=== PATIENT | female | born 1950 | race Caucasian/White ===

== ENCOUNTER 2017-05-24 11:58 | Outpatient (CLI) ==
[2014-05-15 20:44] VITALS: BMI 33.0
[2017-05-24 12:39] LABS: CREATININE 0.77 mg/dL (0.60-1.30)
--- NOTE | 2017-05-24 15:04 | MRI ---
EXAM: Brain MRI with and without contrast. HISTORY: Dizziness and headaches. COMPARISON: Brain MRI 04/19/[address] 05/20/2009. TECHNIQUE: Multiplanar, multisequence MR images were acquired of the brain before and after adminis tration of intravenous contrast. FINDINGS: The midline structures are central and the craniocervical junction is unremarkable. Ther e is enlargement of the subarachnoid space anterior to both frontal lobes, greater on the right and there is mild widening of some frontal and parietal sulci bilaterally. There is mild prominence of both sylvian fissures, the ventricles and the quadrigeminal cistern. These findings are compatible w ith age related involutional changes. The brain parenchyma has no diffusion restriction to suggest acute hypoperfusion or infarction. Sma ll T2 hyperintensities are present in the supratentorial white matter and fatoumata compatible with mild supratentorial and minor pontine leukomalacia. These findings are unchanged compared to 04/19/2016 allowing for minor differences in slice selection. There is no abnormal dark gradient echo signal t o suggest hemosiderin staining. After administration of gadolinium, no enhancing masses are identif ied. The corpus callosum is normal in configuration. The sella is mildly expanded and the pituitar y gland is small with a concave superior border without change. There are no intraorbital masses. Paranasal sinuses, middle ears and mastoids are clear. There is no abnormal contrast enhancement in the internal auditory canals or labyrinthine structures. Flow voids are present in the major intracranial arteries and dural venous sinuses. IMPRESSION: 1. 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 2. No intracranial mass, hemorrhage or acute cerebral infarct.
== END 2017-05-24 11:59 | disposition home or self-care (01) ==
LOC: RAD 11:58
PROVIDERS: ATTEND Internal Medicine
DX: R42 Dizziness and giddiness (principal); R51 Headache
CPT/HCPCS: 36415; 82565

== ENCOUNTER 2017-06-11 14:59 | Outpatient (CLI) ==
[2014-05-15 20:44] VITALS: BMI 33.0
== END 2017-06-11 15:00 | disposition home or self-care (01) ==
LOC: CAR 14:59
PROVIDERS: ATTEND Internal Medicine
DX: G47.10 Hypersomnia, unspecified (principal); R06.83 Snoring; G47.30 Sleep apnea, unspecified; H93.13 Tinnitus, bilateral; R42 Dizziness and giddiness; R51 Headache
CPT/HCPCS: 95810

== ENCOUNTER 2018-03-20 11:29 | Outpatient (CLI) ==
[2014-05-15 20:44] VITALS: BMI 33.0
== END 2018-03-20 11:30 | disposition home or self-care (01) ==
LOC: LAB 11:29
PROVIDERS: ATTEND Psychiatry & Neurology Neurology
DX: G62.9 Polyneuropathy, unspecified (principal)
CPT/HCPCS: 36415; 80048; 80076; 82607; 82746; 84165; 85027; 86038

== ENCOUNTER 2018-08-05 14:44 | Emergency (ER) ==
[2018-08-05 14:50] VITALS: BP 152/81; TEMP 98.4; BMI 33.3
--- NOTE | 2018-08-05 16:42 | ED.PDOC ---
General ED Provider: Dr. LEONID CASTILLO Chief Complaint: Foreign Body in Ear Stated Complaint: States Part of her hearing aid, a little plastic tip came loose and is stuck in her Left External Ear Canal. She states she attempted to remove it but was not successful. States she was told by the person who sold it to her that it would just fall out. States she can hear a popping noise in her left ear and it was hurting but now "lesley aches." Time Seen by Physician: 15:10 Mode of Arrival: Walk-In Information Source: Patient Exam Limitations: No limitations Primary Care Provider: PAUL KAUFMAN Nursing and Triage Documentation Reviewed and Agree: Yes Does patient meet sepsis criteria?: No System Inflammatory Response Syndrome: Not Applicable Sepsis Protocol: For patient's 13 years and over: Temp is 96.8 and below OR 101 and greater Pulse >90 BPM Resp >20/minute Acutely Altered Mental Status Are patient's symptoms suggestive of a new infection, such as: -Pneumonia -Skin, Soft Tissue -Endocarditis -UTI -Bone, Joint Infection -Implantable Device -Acute Abdominal Infection -Wound Infection -Meningitis -Blood Stream Catheter Infection -Unknown EENT Complaint Exam - Ear Complaint/Exam Onset/Duration: 12 hrd Symptoms Are: Still present (12) Timing: Constant Initial Severity: Moderate Current Severity: Moderate Character: Reports: Dull pain, Aching pain Aggravating: Reports: Foreign body Alleviating: Reports: None Associated Signs and Symptoms: Denies: Ear trauma, Ear swelling, Discharge, Fever, Hearing loss, Bleeding, Sore throat, Headache, URI symptoms, Foreign body sensation, Rash, Pain to external ear, Pain to external face Ear Surgical History: None Vesicles to External Pinna: No Vesicles to Tragus: No TMJ Tenderness: None Mastoid Tenderness: None Tragal Tenderness: None External Canal: Tenderness Material in Canal: Present: Cerumen Tympanic Membrane: Dullness Differential Diagnoses: Foreign Body Review of Systems - Review Of Systems Constitutional: Reports: No symptoms Eyes: Reports: No symptoms Ears, Nose, Mouth, Throat: Reports: No symptoms Respiratory: Reports: No symptoms Cardiac: Reports: No symptoms GI: Reports: No symptoms : Reports: No symptoms Musculoskeletal: Reports: No symptoms Skin: Reports: No symptoms Neurological: Reports: No symptoms Endocrine: Reports: No symptoms Hematologic/Lymphatic: Reports: No symptoms All Other Systems: Reviewed and Negative Past Medical History - Past Medical History Previously Healthy: Yes Endocrine: Reports: Dyslipidemia Cardiovascular: Reports: Hypertension Respiratory: Reports: COPD Hematological: Reports: None Gastrointestinal: Reports: GERD Genitourinary: Reports: None Neuro/Psych: Reports: None Musculoskeletal: Reports: None, Back Pain Cancer: Reports: None Last Menstrual Period: n/a - Surgical History General Surgical History: Reports: None - Family History Family History: Reports: None - Social History Smoking Status: Never smoker Hx Substance Use: No Alcohol Screening: None Physical Exam - Physical Exam Appearance: Well-appearing, No pain distress, Well-nourished Eyes: SANJAY, EOMI, Conjunctiva clear ENT: Ears normal, Nose normal, Oropharynx normal Neck: Supple Respiratory: Airway patent, Breath sounds clear, Breath sounds equal, Respirations nonlabored Cardiovascular: RRR, Pulses normal, No rub, No murmur GI/: Soft, Nontender, No masses, Bowel sounds normal, No Organomegaly Musculoskeletal: Normal strength, ROM intact, No edema, No calf tenderness Skin: Warm, Dry, Normal color Neurological: Sensation intact, Motor intact, Reflexes intact, Cranial nerves intact, Alert, Oriented Psychiatric: Affect appropriate, Mood appropriate Procedures - Foreign Body Removal Location of Foreign Object: Lt External Auditory Canal Foreign Object: small plastic tip Depth of Object: Middle aspect Type of Anesthesia: None Irrigation: No Skin Incised: No Instruments Used: Yes: Forceps Foreign Body Identified and Removed: Yes Critical Care Note - Critical Care Note Total Time (mins): 0 Course - Course Vital Signs: Temp Pulse Resp BP Pulse Ox 08/05/18 14:47 98.4 F 66 20 152/81 H 96 Departure - Departure Time of Disposition: 16:40 Disposition: HOME SELF-CARE Discharge Problem: Foreign body sensation in left ear canal Instructions: Ear Foreign Body (ED) Condition: Good Pt referred to PMD for follow-up: Yes IPMP verified?: No Additional Instructions: Have hearing aide checked for correction as needed Allergies/Adverse Reactions: Allergies Penicillins Adverse Reaction (Verified 05/15/14 21:00) Sulfa (Sulfonamide Antibiotics) Adverse Reaction (Verified 08/05/18 14:50) Home Medications: Ambulatory Orders Cetirizine HCl [Zyrtec] 10 mg PO DAILY 06/25/13 Simvastatin [Zocor] 40 mg PO DAILY 06/25/13 Gabapentin 100 mg PO BID 05/15/14 Albuterol Sulfate [Proair Hfa] 2 puff IH Q6H 08/05/18 Amlodipine Besylate 5 mg PO BID 08/05/18 Epinephrine [Epipen] 0.3 mg IJ PRN PRN 08/05/18 Escitalopram Oxalate 20 mg PO DAILY 08/05/18 Esomeprazole Magnesium [Nexium] 20 mg PO DAILY 08/05/18 Fluticasone Propionate [Flonase] 2 spray NS DAILY 08/05/18 Losartan Potassium 100 mg PO DAILY 08/05/18 Disposition Discussed With: Patient
== END 2018-08-05 17:03 | disposition home or self-care (01) ==
LOC: ED 14:44
DX: T16.2XXA Foreign body in left ear, initial encounter (principal)
CPT/HCPCS: 99282

== ENCOUNTER 2020-12-30 15:56 | Observation (INO) ==
[2020-12-30] MEDS ORDERED: ZOFRAN 4 MG/2 ML IVP STA (16:16)
[2020-12-30] MEDS ORDERED: SODIUM CHLORIDE 1,000 ML IV STA (16:17)
[2020-12-30] MEDS ORDERED: TYLENOL PO STA (16:27)
[2020-12-30 16:38] LABS: BASOPHILS % (AUTO) 0.5 % (0.0-3.0); EOSINOPHILS % (AUTO) 0.4 % (0.0-7.0); HEMATOCRIT 39.7 % (37.0-47.0); HEMOGLOBIN 13.4 g/dl (12.0-16.0); IMMATURE GRANULOCYTE % (AUTO) 0.3 % (0.0-5.0); LYMPHOCYTES # (AUTO) 0.7 K/uL (0.60-3.4); LYMPHOCYTES % (AUTO) 9.1 (10.0-50.0); MEAN CORPUSCULAR HEMOGLOBIN 30.2 pg (27.0-31.0); MEAN CORPUSCULAR HGB CONC 33.8 (31.8-35.4); MEAN CORPUSCULAR VOLUME 89.6 fl (81.0-99.0); MONOCYTES # (AUTO) 0.5 K/uL (0.4-2.0); MONOCYTES % (AUTO) 5.8 (0-10); NEUTROPHILS # (AUTO) 6.7 K/ul (2.0-6.9); NEUTROPHILS % (AUTO) 83.9 % (42.2-75.2); PLATELET COUNT 192 10^3/uL (140-440); RDW COEFFICIENT OF VARIATION 13.3 % (11.6-14.8); RED BLOOD COUNT 4.43 10^6/ul (4.20-5.40); WHITE BLOOD COUNT 7.95 K/ul (4.6-10.2)
[2020-12-30 16:49] LABS: ALANINE AMINOTRANSFERASE 20.1 U/L (0-35); ALKALINE PHOSPHATASE 67.8 U/L (53-141); ASPARTATE AMINO TRANSFERASE 31.2 U/L (14-36); BLOOD UREA NITROGEN 15.7 mg/dL (7-17); CALCIUM 9.49 mg/dL (8.4-10.2); CARBON DIOXIDE 28.3 mmol/L (22-30.0); CHLORIDE 101.7 mmol/L (98-107); CREATINE KINASE 31.6 U/L (30-135); CREATININE 0.73 mg/dL (0.60-1.30); GLUCOSE 111.5 mg/dL (74-106); POTASSIUM 3.99 mmol/L (3.5-5.1); SODIUM 137.6 mmol/L (134.5-145); TOTAL PROTEIN 7.74 g/dL (6.3-8.2)
--- NOTE | 2020-12-30 16:55 | DI ---
EXAM: Chest one view HISTORY: Cough and congestion COMPARISON: 10/06/2020 TECHNIQUE: Single view of the chest was performed FINDINGS: Probable left basilar atelectasis versus less likely consolidation. There is no pleural e ffusion or pneumothorax. The heart is normal in size. The mediastinal contour is normal. There are no acute abnormalities of the bones. IMPRESSION: Probable left basilar atelectasis versus less likely pneumonia
[2020-12-30 17:01] LABS: TROPONIN I < 0.012 ng/ml (0.0000-0.120)
[2020-12-30 17:45] LABS: BILIRUBIN,URINE Negative (NEGATIVE); CLARITY,URINE Clear (CLEAR); COLOR,URINE Dark (YELLOW); GLUCOSE, URINE (UA) Negative (NEGATIVE); KETONES,URINE Negative (NEGATIVE); LEUKOCYTE ESTERASE ,URINE Negative (NEGATIVE); NITRITE,URINE Negative (NEGATIVE); PROTEIN,URINE 1+ (NEGATIVE); URINE, BLOOD Negative (NEGATIVE); UROBILINOGEN,URINE 0.2 (0.2)
[2020-12-30 17:49] LABS: MUCUS,URINE 2+ (NOT PRESENT)
[2020-12-30] MEDS ORDERED: TYLENOL PO PRN (19:01)
[2020-12-30] MEDS ORDERED: ROCEPHIN 1 GM/50 ML D5W 1 GM/50 ML BAG IV SCH (19:30)
[2020-12-30] MEDS ORDERED: ZITHROMAX PO SCH (19:30)
[2020-12-30 21:34] VITALS: BMI 31.2
[2020-12-30] MEDS: SOLU-MEDROL 125 MG IVP SCH ×2 (21:56→21:57)
[2020-12-30] MEDS: LOVENOX SUBCUT SCH (22:07)
[2020-12-30] MEDS: NORVASC PO SCH (22:43)
[2020-12-30] MEDS: COLESTID PO SCH (22:43)
[2020-12-31 05:19] LABS: BASOPHILS % (AUTO) 0.2 % (0.0-3.0); HEMATOCRIT 37.4 % (37.0-47.0); HEMOGLOBIN 12.5 g/dl (12.0-16.0); IMMATURE GRANULOCYTE % (AUTO) 0.2 % (0.0-5.0); LYMPHOCYTES # (AUTO) 0.5 K/uL (0.60-3.4); MEAN CORPUSCULAR HEMOGLOBIN 29.8 pg (27.0-31.0); MEAN CORPUSCULAR HGB CONC 33.4 (31.8-35.4); MEAN CORPUSCULAR VOLUME 89.3 fl (81.0-99.0); MONOCYTES # (AUTO) 0.1 K/uL (0.4-2.0); MONOCYTES % (AUTO) 1.1 (0-10); NEUTROPHILS % (AUTO) 89.5 % (42.2-75.2); PLATELET COUNT 174 10^3/uL (140-440); RDW COEFFICIENT OF VARIATION 13.2 % (11.6-14.8); RED BLOOD COUNT 4.19 10^6/ul (4.20-5.40); WHITE BLOOD COUNT 5.57 K/ul (4.6-10.2)
[2020-12-31 05:33] LABS: ALANINE AMINOTRANSFERASE 20.4 U/L (0-35); ALBUMIN 3.91 g/dL (3.5-5.0); ALKALINE PHOSPHATASE 66.1 U/L (53-141); BILIRUBIN,TOTAL 0.43 mg/dL (0.2-1.3); BLOOD UREA NITROGEN 16.5 mg/dL (7-17); CALCIUM 9.07 mg/dL (8.4-10.2); CARBON DIOXIDE 23.9 mmol/L (22-30.0); CHLORIDE 103.9 mmol/L (98-107); CREATININE 0.69 mg/dL (0.60-1.30); GLUCOSE 172.1 mg/dL (74-106); POTASSIUM 3.72 mmol/L (3.5-5.1); SODIUM 135.6 mmol/L (134.5-145); TOTAL PROTEIN 7.01 g/dL (6.3-8.2)
[2020-12-31] MEDS: SOLU-MEDROL 125 MG IVP SCH ×3 (05:36→21:21)
[2020-12-31] MEDS: VITAMIN D PO SCH (08:28)
[2020-12-31] MEDS: FLONASE NAS SCH (08:28)
[2020-12-31] MEDS: CLARITIN PO SCH (08:30)
[2020-12-31] MEDS: COLESTID PO SCH ×2 (08:31→21:16)
[2020-12-31] MEDS: LEXAPRO PO SCH (08:31)
[2020-12-31] MEDS: COZAAR PO SCH (08:31)
[2020-12-31] MEDS: NORVASC PO SCH ×2 (08:32→21:16)
[2020-12-31] MEDS: LOVENOX SUBCUT SCH (08:35)
[2020-12-31] MEDS ORDERED: CETIRIZINE 10 MG PO SCH (09:00)
[2020-12-31] MEDS ORDERED: ASPIRIN CHEWABLE PO SCH (09:00)
[2020-12-31] MEDS ORDERED: PROTONIX PO SCH (09:00)
[2020-12-31] MEDS: ZOCOR PO SCH (16:57)
[2020-12-31] MEDS: HUMULIN R SUBCUT PRN ×2 (16:57→21:28)
[2020-12-31] MEDS ORDERED: ROCEPHIN 1 GM/50 ML D5W 1 GM/50 ML BAG IV SCH (21:00)
[2020-12-31] MEDS: ZITHROMAX PO SCH (21:16)
[2021-01-01 05:19] LABS: BASOPHILS % (AUTO) 0.1 % (0.0-3.0); HEMATOCRIT 34.4 % (37.0-47.0); HEMOGLOBIN 11.8 g/dl (12.0-16.0); IMMATURE GRANULOCYTE % (AUTO) 0.3 % (0.0-5.0); LYMPHOCYTES # (AUTO) 0.8 K/uL (0.60-3.4); LYMPHOCYTES % (AUTO) 8.5 (10.0-50.0); MEAN CORPUSCULAR HEMOGLOBIN 30.6 pg (27.0-31.0); MEAN CORPUSCULAR HGB CONC 34.3 (31.8-35.4); MEAN CORPUSCULAR VOLUME 89.1 fl (81.0-99.0); MONOCYTES # (AUTO) 0.2 K/uL (0.4-2.0); MONOCYTES % (AUTO) 2.1 (0-10); NEUTROPHILS # (AUTO) 8.5 K/ul (2.0-6.9); PLATELET COUNT 178 10^3/uL (140-440); RDW COEFFICIENT OF VARIATION 13.2 % (11.6-14.8); RED BLOOD COUNT 3.86 10^6/ul (4.20-5.40); WHITE BLOOD COUNT 9.52 K/ul (4.6-10.2)
[2021-01-01] MEDS: SOLU-MEDROL 125 MG IVP SCH (05:20)
[2021-01-01 05:34] LABS: ALANINE AMINOTRANSFERASE 19.2 U/L (0-35); ALBUMIN 3.69 g/dL (3.5-5.0); ALKALINE PHOSPHATASE 60.6 U/L (53-141); ASPARTATE AMINO TRANSFERASE 22.2 U/L (14-36); BILIRUBIN,TOTAL 0.39 mg/dL (0.2-1.3); BLOOD UREA NITROGEN 20.8 mg/dL (7-17); CALCIUM 9.54 mg/dL (8.4-10.2); CARBON DIOXIDE 26.6 mmol/L (22-30.0); CHLORIDE 104.7 mmol/L (98-107); CREATININE 0.81 mg/dL (0.60-1.30); GLUCOSE 193.3 mg/dL (74-106); POTASSIUM 3.8 mmol/L (3.5-5.1); SODIUM 137.4 mmol/L (134.5-145); TOTAL PROTEIN 6.71 g/dL (6.3-8.2)
[2021-01-01] MEDS: HUMULIN R SUBCUT PRN ×3 (05:48→21:22)
[2021-01-01] MEDS: FLONASE NAS SCH (08:24)
[2021-01-01] MEDS: CLARITIN PO SCH (08:24)
[2021-01-01] MEDS: VITAMIN D PO SCH (08:24)
[2021-01-01] MEDS: COZAAR PO SCH (08:24)
[2021-01-01] MEDS: NORVASC PO SCH ×2 (08:24→20:20)
[2021-01-01] MEDS: LEXAPRO PO SCH (08:24)
[2021-01-01] MEDS: ASPIRIN CHEWABLE PO SCH (08:24)
[2021-01-01] MEDS: LOVENOX SUBCUT SCH (08:25)
[2021-01-01] MEDS: PROTONIX PO SCH (08:25)
[2021-01-01] MEDS: COLESTID PO SCH ×2 (10:06→21:22)
[2021-01-01] MEDS: ZOCOR PO SCH (16:58)
[2021-01-01] MEDS: PREDNISONE PO SCH (16:58)
[2021-01-01] MEDS: LIDOCAINE HCL 1% SDV IM SCH (20:20)
[2021-01-01] MEDS: ZITHROMAX PO SCH (20:20)
[2021-01-01] MEDS: ROCEPHIN 1 GM VIAL IM SCH (20:21)
[2021-01-02 04:31] LABS: BASOPHILS % (AUTO) 0.1 % (0.0-3.0); HEMATOCRIT 33.5 % (37.0-47.0); HEMOGLOBIN 11.3 g/dl (12.0-16.0); IMMATURE GRANULOCYTE % (AUTO) 0.2 % (0.0-5.0); LYMPHOCYTES # (AUTO) 1.3 K/uL (0.60-3.4); MEAN CORPUSCULAR HGB CONC 33.7 (31.8-35.4); MEAN CORPUSCULAR VOLUME 88.9 fl (81.0-99.0); MONOCYTES # (AUTO) 0.6 K/uL (0.4-2.0); MONOCYTES % (AUTO) 6.3 (0-10); NEUTROPHILS # (AUTO) 7.6 K/ul (2.0-6.9); NEUTROPHILS % (AUTO) 79.4 % (42.2-75.2); PLATELET COUNT 166 10^3/uL (140-440); RDW COEFFICIENT OF VARIATION 13.2 % (11.6-14.8); RED BLOOD COUNT 3.77 10^6/ul (4.20-5.40); WHITE BLOOD COUNT 9.58 K/ul (4.6-10.2)
[2021-01-02 04:46] LABS: ALANINE AMINOTRANSFERASE 17.1 U/L (0-35); ALBUMIN 3.45 g/dL (3.5-5.0); ALKALINE PHOSPHATASE 59.1 U/L (53-141); ASPARTATE AMINO TRANSFERASE 19.3 U/L (14-36); BILIRUBIN,TOTAL 0.23 mg/dL (0.2-1.3); BLOOD UREA NITROGEN 27.3 mg/dL (7-17); CALCIUM 9.23 mg/dL (8.4-10.2); CARBON DIOXIDE 27.9 mmol/L (22-30.0); CHLORIDE 104.2 mmol/L (98-107); CREATININE 0.69 mg/dL (0.60-1.30); GLUCOSE 126.6 mg/dL (74-106); POTASSIUM 3.8 mmol/L (3.5-5.1); SODIUM 136.7 mmol/L (134.5-145); TOTAL PROTEIN 6.26 g/dL (6.3-8.2)
[2021-01-02] MEDS: PROTONIX PO SCH (05:56)
[2021-01-02] MEDS: ASPIRIN CHEWABLE PO SCH (09:29)
[2021-01-02] MEDS: NORVASC PO SCH ×2 (09:30→20:51)
[2021-01-02] MEDS: CLARITIN PO SCH (09:30)
[2021-01-02] MEDS: PREDNISONE PO SCH ×2 (09:30→17:08)
[2021-01-02] MEDS: COZAAR PO SCH (09:30)
[2021-01-02] MEDS: LEXAPRO PO SCH (09:30)
[2021-01-02] MEDS: FLONASE NAS SCH (09:30)
[2021-01-02] MEDS: LOVENOX SUBCUT SCH (09:31)
[2021-01-02] MEDS: VITAMIN D PO SCH (09:38)
--- NOTE | 2021-01-02 09:56 | PCM.PROG ---
Attending Provider: ATTENDING PROVIDER: Dr. PAUL KAUFMAN This patient is seen with Yumi Musa, Nurse Practitioner. DATE OF SERVICE: 01/02/21 SUBJECTIVE: This 70 year old /WHITE F was hospitalized 12/30/20. The patient is resting comfortably in bed. She is eating well. No nausea. No fever. REVIEW OF SYSTEMS: CONSTITUTIONAL: No night sweats. No fatigue, malaise, lethargy. No fever or chills. HEENT: Eyes: No visual changes. No eye pain. No eye discharge. ENT: No runny nose. No epistaxis. No sinus pain. No odynophagia. No congestion. RESPIRATORY: Positive for cough. No hemoptysis. No shortness of breath. CARDIOVASCULAR: No angina symptoms. No CHF symptoms. No atypical chest pain for CAD. No palpitations. No orthopnea.. GASTROINTESTINAL: No abdominal pain. No nausea or vomiting. No diarrhea or constipation. No hematemesis. No hematochezia. GENITOURINARY: No urgency. No frequency. No dysuria. No hematuria. No obstructive symptoms. No discharge. No pain. No significant abnormal bleeding. MUSCULOSKELETAL: No musculoskeletal pain; no joint swelling. NEUROLOGICAL: Awake, alert, oriented to time, place and person. No headache. No neck pain. No syncope. No seizures. No dizziness. PSYCHIATRIC: Not anxious. No depression. No suicidal thoughts. No homicidal thoughts. SKIN: No rash. No lesions. No wounds. ENDOCRINE: No unexplained weight loss. No weight gain. HEMATOLOGIC/LYMPHATIC: No anemia. No purpura. No petechiae. No prolonged or excessive bleeding. No palpable lymph nodes. PHYSICAL EXAMINATION: GENERAL: The patient is awake, alert and oriented, lying/sitting in bed in no distress. VITAL SIGNS: Temperature 98.0 F, Pulse 60, Respiratory Rate 18, BP 133/71, Pulse Ox 96% HEENT: Head normocephalic, atraumatic. Eyes: Extraocular muscles are intact. Pupils are equal, round and reactive to light and accommodation. Ears: No lesions. Nose appeared normal. Throat: No exudate or erythema. NECK: Supple. No JVD, no carotid bruit. No lymphadenopathy or thyromegaly. LUNGS: Diminished breath sounds. Clear to auscultation. Percussion note normal. Chest symmetrical. HEART: S1, S2, no S3. No murmurs. No cyanosis or clubbing. No ascites. Pulses: Dorsalis pedis and posterior tibial pulses +1 to +2 both sides. ABDOMEN: Soft. Non-tender. Bowel sounds active. No CVA tenderness. No mass felt. EXTREMITIES: No edema. Full range of motion of all extremities, equal. NEUROLOGIC: No focal deficit. Cranial nerves II through XII are grossly intact. No headache. No double vision. SKIN: Not dry. Intact. Turgor-normal. LYMPHATIC: No palpable lymph nodes/no lymphedema. MUSCULOSKELETAL: Normal joints with no swelling. Muscle tone is normal. LAB REVIEW: 01/02/21 04:03 01/02/21 04:03 01/02/21 04:03: Sodium 136.7, Potassium 3.80, Chloride 104.2, Carbon Dioxide 27.9, Anion Gap 8.40, BUN 27.3 H, Creatinine 0.69, Estimated GFR (MDRD) 84.00, BUN/Creatinine Ratio 39.56, Glucose 126.6 H D, Calcium 9.23, Total Bilirubin 0.23, AST 19.3, ALT 17.1, Alkaline Phosphatase 59.1, Total Protein 6.26 L, Albumin 3.45 L, Globulin 2.81, Albumin/Globulin Ratio 1.22 01/02/21 04:03: WBC 9.58, RBC 3.77 L, Hgb 11.3 L, Hct 33.5 L, MCV 88.9, MCH 30.0, MCHC 33.7, RDW Coeff of Ariela 13.2, Plt Count 166, Immature Gran % (Auto) 0.2, Neut % (Auto) 79.4 H, Lymph % (Auto) 14.0, Perkins % (Auto) 6.3, Eos % (Auto) 0.0, Baso % (Auto) 0.1, Neut # (Auto) 7.6 H, Lymph # (Auto) 1.3, Perkins # (Auto) 0.6, Eos # (Auto) 0.0, Baso # (Auto) 0.0, Immature Gran # (Auto) 0.0 ASSESSMENT: Please see below. 1. Left basilar pneumonia. 2. Nausea. 3. Shortness of breath, resolved. 4. Hypertension. PLAN: 1. Continue IV Rocephin. 2. Anticipate discharge tomorrow. Plan and coordination of the patient's care discussed in the presence of Fur Liner and nurse. CONDITION: Stable SCRIBED BY: HIRA CONNELL Mechanical Engineering Technician scribed while in presence of service performed by Dr. Kaufman/Yumi Musa APRN on 01/02/21 ([id number])
[2021-01-02] MEDS: COLESTID PO SCH ×2 (10:41→21:05)
--- NOTE | 2021-01-02 14:38 | PN ---
DATE OF SERVICE: 12/30/2020 SUBJECTIVE: The patient was seen and examined in the emergency room. The patient was directed to the emergency room as she called after getting COVID shot a few days ago. The patient has developed fever. Yesterday she recorded fever of 102 and today it is 101 in the emergency room. There is possibility of atelectasis or possibility of pneumonitis. She has been vomiting. She feels weak and tired. She has a who is almost a Hospice type patient with multiple cancers with tracheostomy. REVIEW OF SYSTEMS: CONSTITUTIONAL: No night sweats. No fatigue, malaise, lethargy. No fever or chills. HEENT: Eyes: No visual changes. No eye pain. No eye discharge. ENT: No runny nose. No epistaxis. No sinus pain. No sore throat. No odynophagia. No congestion. RESPIRATORY: No cough, no congestion. No hemoptysis. No shortness of breath. CARDIOVASCULAR: No angina symptoms. No CHF symptoms. No atypical chest pain for CAD. No palpitations. No PND. No orthopnea. GASTROINTESTINAL: No abdominal pain. No nausea or vomiting. No diarrhea or constipation. No hematemesis. No hematochezia. GENITOURINARY: No urgency. No frequency. No dysuria. No hematuria. No obstructive symptoms. No discharge. No pain. No significant abnormal bleeding. MUSCULOSKELETAL: No musculoskeletal pain; no joint swelling. NEUROLOGICAL: No headache. No neck pain. No syncope. No seizures. No dizziness. PSYCHIATRIC: Not anxious. No depression. No suicidal thoughts. No homicidal thoughts. SKIN: No rash. No lesions. No wounds. ENDOCRINE: No unexplained weight loss. No weight gain. HEMATOLOGIC/LYMPHATIC: No anemia. No purpura. No petechiae. No prolonged or excessive bleeding. No palpable lymph nodes. PHYSICAL EXAMINATION: VITALS: Oxygen saturation more than 95% on room air. HEENT: Head normocephalic, atraumatic. Eyes: Extraocular muscles are intact. Pupils are equal, round and reactive to light and accommodation. Ears: No lesions. Nose appeared normal. Throat: No exudate or erythema. NECK: Supple. No JVD, no carotid bruit. No lymphadenopathy or thyromegaly. LUNGS: Clear to auscultation. Percussion note normal. Chest symmetrical. HEART: S1, S2, no S3. No murmurs. No cyanosis or clubbing. No ascites. Pulses: Dorsalis pedis and posterior tibial pulses +1 to +2 bilaterally. ABDOMEN: Soft. Nontender. Bowel sounds active. No CVA tenderness. No mass felt. EXTREMITIES: No edema. Full range of motion of all extremities, equal. NEUROLOGIC: No focal deficit. Cranial nerves II through XII are grossly intact. No headache. No double vision. SKIN: Not dry. Intact. Turgor - normal. LYMPHATIC: No palpable lymph nodes/no lymphedema. MUSCULOSKELETAL: Normal joints with no swelling. Muscle tone is normal. ASSESSMENT: 1. Pneumonitis with fever post COVID vaccination maybe viral syndrome on top of it. 2. Nausea 3. Vomiting 4. Gastritis coming from viral infection PLAN: 1. IV fluids 2. Zofran 3. IV antibiotics 4. The patient is going to be hospitalized TIME SPENT: More than 30 minutes. Plan and coordination of the patient's care discussed in the presence of nurse. MU
[2021-01-02] MEDS: ZOCOR PO SCH (17:52)
[2021-01-02] MEDS: SYMBICORT 160-4.5 MCG INHALER IH SCH (20:50)
[2021-01-02] MEDS: ROCEPHIN 1 GM VIAL IM SCH (20:51)
[2021-01-02] MEDS: LIDOCAINE HCL 1% SDV IM SCH (20:53)
[2021-01-02] MEDS: HUMULIN R SUBCUT PRN (20:55)
[2021-01-03 05:18] LABS: HEMATOCRIT 34.5 % (37.0-47.0); HEMOGLOBIN 11.7 g/dl (12.0-16.0); IMMATURE GRANULOCYTE % (AUTO) 0.4 % (0.0-5.0); LYMPHOCYTES # (AUTO) 1.7 K/uL (0.60-3.4); LYMPHOCYTES % (AUTO) 34.9 (10.0-50.0); MEAN CORPUSCULAR HGB CONC 33.9 (31.8-35.4); MEAN CORPUSCULAR VOLUME 88.5 fl (81.0-99.0); MONOCYTES # (AUTO) 0.4 K/uL (0.4-2.0); MONOCYTES % (AUTO) 8.2 (0-10); NEUTROPHILS # (AUTO) 2.8 K/ul (2.0-6.9); NEUTROPHILS % (AUTO) 56.5 % (42.2-75.2); PLATELET COUNT 173 10^3/uL (140-440); RDW COEFFICIENT OF VARIATION 13.2 % (11.6-14.8); WHITE BLOOD COUNT 4.99 K/ul (4.6-10.2)
[2021-01-03 05:30] LABS: ALANINE AMINOTRANSFERASE 27.4 U/L (0-35); ALBUMIN 3.56 g/dL (3.5-5.0); ALKALINE PHOSPHATASE 50.6 U/L (53-141); ASPARTATE AMINO TRANSFERASE 26.8 U/L (14-36); BILIRUBIN,TOTAL 0.36 mg/dL (0.2-1.3); BLOOD UREA NITROGEN 22.2 mg/dL (7-17); CALCIUM 9.15 mg/dL (8.4-10.2); CARBON DIOXIDE 30.3 mmol/L (22-30.0); CHLORIDE 101.6 mmol/L (98-107); CREATININE 0.64 mg/dL (0.60-1.30); GLUCOSE 107.7 mg/dL (74-106); POTASSIUM 3.61 mmol/L (3.5-5.1); SODIUM 137.9 mmol/L (134.5-145); TOTAL PROTEIN 6.33 g/dL (6.3-8.2)
[2021-01-03 05:42] VITALS: BP 137/74; TEMP 97.9
[2021-01-03] MEDS: PROTONIX PO SCH (05:46)
[2021-01-03] MEDS: CLARITIN PO SCH (08:43)
[2021-01-03] MEDS: PREDNISONE PO SCH (08:43)
[2021-01-03] MEDS: NORVASC PO SCH (08:43)
[2021-01-03] MEDS: VITAMIN D PO SCH (08:43)
[2021-01-03] MEDS: COZAAR PO SCH (08:43)
[2021-01-03] MEDS: ASPIRIN CHEWABLE PO SCH (08:43)
[2021-01-03] MEDS: LEXAPRO PO SCH (08:43)
--- NOTE | 2021-01-03 08:53 | PCM.PROG ---
Attending Provider: ATTENDING PROVIDER: Dr. PAUL KAUFMAN This patient is seen with Yumi Musa, Nurse Practitioner. DATE OF SERVICE: 01/03/21 SUBJECTIVE: This 70 year old /WHITE F was hospitalized 12/30/20. The patient is resting comfortably in bed. She has been eating well and is up and about. No nausea, no fever. She is ready to go home today REVIEW OF SYSTEMS: CONSTITUTIONAL: No night sweats. No fatigue, malaise, lethargy. No fever or chills. HEENT: Eyes: No visual changes. No eye pain. No eye discharge. ENT: No runny nose. No epistaxis. No sinus pain. No odynophagia. No congestion. RESPIRATORY: No cough, no congestion. No hemoptysis. No shortness of breath. CARDIOVASCULAR: No angina symptoms. No CHF symptoms. No atypical chest pain for CAD. No palpitations. No orthopnea.. GASTROINTESTINAL: No abdominal pain. No nausea or vomiting. No diarrhea or const ipation. No hematemesis. No hematochezia. GENITOURINARY: No urgency. No frequency. No dysuria. No hematuria. No obstructive symptoms. No discharge. No pain. No significant abnormal bleeding. MUSCULOSKELETAL: No musculoskeletal pain; no joint swelling. NEUROLOGICAL: Awake, alert, oriented to time, place and person. No headache. No neck pain. No syncope. No seizures. No dizziness. PSYCHIATRIC: Not anxious. No depression. No suicidal thoughts. No homicidal thoughts. SKIN: No rash. No lesions. No wounds. ENDOCRINE: No unexplained weight loss. No weight gain. HEMATOLOGIC/LYMPHATIC: No anemia. No purpura. No petechiae. No prolonged or excessive bleeding. No palpable lymph nodes. PHYSICAL EXAMINATION: GENERAL: The patient is awake, alert and oriented, lying/sitting in bed in no distress. VITAL SIGNS: Temperature 97.9 F, Pulse 53, Respiratory Rate 16, BP 137/74, P ulse Ox 96% HEENT: Head normocephalic, atraumatic. Eyes: Extraocular muscles are intact. Pupils are equal, round and reactive to light and accommodation. Ears: No lesions. Nose appeared normal. Throat: No exudate or erythema. NECK: Supple. No JVD, no carotid bruit. No lymphadenopathy or thyromegaly. LUNGS: Diminished breath sounds. Clear to auscultation. Percussion note normal. Chest symmetrical. HEART: S1, S2, no S3. No murmurs. No cyanosis or clubbing. No ascites. Pulses: Dorsalis pedis and posterior tibial pulses +1 to +2 both sides. ABDOMEN: Soft. Non-tender. Bowel sounds active. No CVA tenderness. No mass felt. EXTREMITIES: No edema. Full range of motion of all extremities, equal. NEUROLOGIC: No focal deficit. Cranial nerves II through XII are grossly intact. No headache. No double vision. SKIN: Not dry. Intact. Turgor-normal. LYMPHATIC: No palpable lymph nodes/no lymphedema. MUSCULOSKELETAL: Normal joints with no swelling. Muscle tone is normal. LAB REVIEW: 01/03/21 04:50 01/03/21 04:50 01/03/21 04:50: Sodium 137.9, Potassium 3.61, Chloride 101.6, Carbon Dioxide 30.3 H, Anion Gap 9.61, BUN 22.2 H, Creatinine 0.64, Estimated GFR (MDRD) 91.00, BUN/Creatinine Ratio 34.68, Glucose 107.7 H, Calcium 9.15, Total Bilirubin 0.36, AST 26.8, ALT 27.4, Alkaline Phosphatase 50.6 L, Total Protein 6.33, Albumin 3.56, Globulin 2.77, Albumin/Globulin Ratio 1.28 01/03/21 04:50: WBC 4.99, RBC 3.90 L, Hgb 11.7 L, Hct 34.5 L, MCV 88.5, MCH 30.0, MCHC 33.9, RDW Coeff of Ariela 13.2, Plt Count 173, Immature Gran % (Auto) 0.4, Neut % (Auto) 56.5, Lymph % (Auto) 34.9, Prowers % (Auto) 8.2, Eos % (Auto) 0.0, Baso % (Auto) 0.0, Neut # (Auto) 2.8, Lymph # (Auto) 1.7, [place]ers # (Auto) 0.4, Eos # (Auto) 0.0, Baso # (Auto) 0.0, Immature Gran # (Auto) 0.0 ASSESSMENT: Please see below. 1. Left basilar pneumonia. 2. Nausea. 3. Shortness of breath, resolved. 4. Hypertension. PLAN: 1. No antibiotics needed. 2. Followup in office next week. 3. Stop Prednisone. 4. D/C home today. Plan and coordination of the patient's care discussed in the presence of Political Science Chair and nurse. CONDITION: Stable SCRIBED BY: Tito JONESist scribed while in presence of service performed by Dr. Kaufman/Yumi Musa APRN on 01/03/21 ([id number])
[2021-01-03] MEDS: FLONASE NAS SCH (08:58)
[2021-01-03] MEDS: SYMBICORT 160-4.5 MCG INHALER IH SCH (08:58)
[2021-01-03] MEDS: COLESTID PO SCH (08:59)
--- NOTE | 2021-01-03 10:10 | PN ---
DATE OF SERVICE: 01/01/21 SUBJECTIVE: 70-year-old white female hospitalized with early pneumonia with shortness of breath, fever, chills and vomiting. The patient is feeling a lot better. She doesn't have any nausea. There is no fever or chills. Appetite seems to have improved. PHYSICAL EXAMINATION: VITAL SIGNS: Temperature 98.2, pulse 65, respiratory rate 18, blood pressure 123/67, pulse ox 98%. HEENT: Head normocephalic, atraumatic. Eyes: Extraocular muscles are intact. Pupils are equal, round and reactive to light and accommodation. Ears: No lesions. Nose appeared normal. Throat: No exudate or erythema. NECK: Supple. No JVD, no carotid bruit. No lymphadenopathy or thyromegaly. LUNGS: Decreased breath sounds but clear to auscultation. Percussion note normal. Chest symmetrical. HEART: S1, S2, no S3. No murmurs. No cyanosis or clubbing. No ascites. Pulses: Dorsalis pedis and posterior tibial pulses +1 to +2 bilaterally. ABDOMEN: Soft. Nontender. Bowel sounds active. No CVA tenderness. No mass felt. EXTREMITIES: No edema. Full range of motion of all extremities, equal. NEUROLOGIC: No focal deficit. Cranial nerves II through XII are grossly intact. No headache. No double vision. SKIN: Not dry. Intact. Turgor - normal. LYMPHATIC: No palpable lymph nodes/no lymphedema. MUSCULOSKELETAL: Normal joints with no swelling. Muscle tone is normal. LABS: Hemoglobin 11.8, hematocrit 34, WBC 9,500, normal differential. Creatinine 0.8, BUN 20, potassium 3.8. ASSESSMENT/PLAN: 1. Pneumonia seems to be resolving. 2. Fever and chills seem to be resolving. 3. The patient is SARS negative. 4. The patient already had Covid shot 7 days ago and after that she got sick. Again the patient had a Covid infection in September. The patient's cardiovascular and respiratory status seems to be stable with antibiotics, steroids and neb inhalers. TIME SPENT: More than 30 minutes. Plan and coordination of the patient's care discussed in the presence of nurse. MU
--- NOTE | 2021-01-03 11:06 | CM.DICTOOL ---
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 BOONE ECHOCARDIOGRAM 11/21/2020 LVEF 64% BORDERLINE LVH NORMAL LV CONTRACTILITY, NORMAL VALVES STRESS TEST: 12/07/20 NO EVIDENCE OF ISCHEMIA LAST VITALS Temp Pulse Resp BP Pulse Ox 97.9 F 53 L 16 137/74 98 01/03/21 05:41 01/03/21 05:41 01/03/21 05:41 01/03/21 05:41 01/03/21 10:00 TAKE THESE MEDICATIONS AT HOME Amlodipine Besylate (Amlodipine Besylate 5 Mg Tablet) 5 mg PO BID [facility] Last Admin: 01/03/21 08:43 Dose: 5 mg Documented by: Aspirin (Aspirin 81 Mg Tab.Chew) 81 mg PO DAILYWM [facility] Last Admin: 01/03/21 08:43 Dose: 81 mg Documented by: Budesonide/Formoterol Fumarate (Budesonide/Formoterol Fumarate 160/4.5 Mcg Inhaler) 2 puff IH BID [facility] Last Admin: 01/03/21 08:58 Dose: 2 puff Documented by: Cholecalciferol (Cholecalciferol (Vitamin D3) 1,000 Unit (25 Mcg) Tablet) 5,000 unit PO DAILY [facility] Last Admin: 01/03/21 08:43 Dose: 5,000 unit Documented by: Colestipol HCl (Colestipol Hcl 1 Gm Tablet) 1 gm PO 1000,2200 [facility] Last Admin: 01/03/21 08:59 Dose: 1 gm Documented by: Escitalopram Oxalate (Escitalopram Oxalate 10 Mg Tablet) 20 mg PO DAILY [facility] Last Admin: 01/03/21 08:43 Dose: 20 mg Documented by: Fluticasone Propionate (Fluticasone Propionate 16 Gm Nasal [place]) 2 spray SHELL DAILY [facility] Last Admin: 01/03/21 08:58 Dose: 2 spray Documented by: Zyrtec 10 Mg Tablet 10 mg PO DAILY [facility] Last Admin: 01/03/21 08:43 Dose: 10 mg Documented by: Losartan Potassium (Losartan Potassium 100 Mg Tablet) 100 mg PO DAILY [facility] Last Admin: 01/03/21 08:43 Dose: 100 mg Documented by: Pantoprazole Sodium (Pantoprazole Sodium 40 Mg Tablet.Dr) 40 mg PO QDAC [facility] Last Admin: 01/03/21 05:46 Dose: 40 mg Documented by: Simvastatin (Simvastatin 40 Mg Tablet) 40 mg PO DAILY@1700 [facility] Last Admin: 01/02/21 17:52 Dose: 40 mg Documented by: ALLERGIES bee venom protein (honey bee) Adverse Reaction (Severe, Verified 12/30/20 17:09) Anaphylaxis Penicillins Adverse Reaction (Intermediate, Verified 12/30/20 17:09) Hives Sulfa (Sulfonamide Antibiotics) Adverse Reaction (Unknown, Verified 12/30/20 17:09) Unknown DISCONTINUED MEDICATIONS NONE NEW PRESCRIPTIONS: NONE COMPLETE HOSPITAL SUPPLY OF SYMBICORT 2 PUFFS BID SMOKING: NOT APPLICABLE DISEASE SPECIFIC EDUCATION: IMPORTANCE OF DEEP BREATHING APPOINTMENT IMPORTANCE OF GOOD NUTRITION AND HYDRATION LAB REVIEW: 01/03/21 04:50 01/03/21 04:50 01/03/21 04:50: Sodium 137.9, Potassium 3.61, Chloride 101.6, Carbon Dioxide 30.3 H, Anion Gap 9.61, BUN 22.2 H, Creatinine 0.64, Estimated GFR (MDRD) 91.00, BUN/Creatinine Ratio 34.68, Glucose 107.7 H, Calcium 9.15, Total Bilirubin 0.36, AST 26.8, ALT 27.4, Alkaline Phosphatase 50.6 L, Total Protein 6.33, Albumin 3.56, Globulin 2.77, Albumin/Globulin Ratio 1.28 01/03/21 04:50: WBC 4.99, RBC 3.90 L, Hgb 11.7 L, Hct 34.5 L, MCV 88.5, MCH 30.0, MCHC 33.9, RDW Coeff of Ariela 13.2, Plt Count 173, Immature Gran % (Auto) 0.4, Neut % (Auto) 56.5, Lymph % (Auto) 34.9, [place] % (Auto) 8.2, Eos % (Auto) 0.0, Baso % (Auto) 0.0, Neut # (Auto) 2.8, Lymph # (Auto) 1.7, [place] # (Auto) 0.4, Eos # (Auto) 0.0, Baso # (Auto) 0.0, Immature Gran # (Auto) 0.0 PLAN: DISCHARGE HOME DIET: REGULAR TOLERATED ACTIVITY: RESUME TOLERATED ALLOW FOR REST PERIODS DURING THE DAY AN APPOINTMENT IS SCHEDULED WITH DR. KAUFMAN/SEYMOUR MARS APRN ON January AT 2:15 PM CODE STATUS: DO NOT RESUSCITATE MRS. PATHAK IS ALERT AND ORIENTED X 4. SHE IS AGREEABLE TO PLANS FOR DISCHARGE HOME TODAY. SHE LIVES AT HOME WITH HER . SHE IS THE PRIMARY CAREGIVER FOR HER . SHE IS INDEPENDENT WITH ACTIVITIES OF DAILY LIVING. SHE IS AMBULATORY IN THE ROOM AND HALLWAY WITHOUT USE OF OXYGEN OR ASSISTIVE DEVICE. SHE DENIES NAUSEA. MEAL INTAKES ARE GOOD AT 75%. SHE IS CONTINENT OF BOWEL AND BLADDER. HYDRATION STATUS IS GOOD. SKIN IS INTACT. MD SEYMOUR PINO APRN
--- NOTE | 2021-01-03 13:55 | PN ---
DATE OF SERVICE: 12/31/20 SUBJECTIVE: 70-year-old white female hospitalized with possibility of pneumonia. The patient's condition seems to have improved. Her fever is down. She is feeling better. REVIEW OF SYSTEMS: CONSTITUTIONAL: No night sweats. No fatigue, malaise, lethargy. No fever or chills. HEENT: Eyes: No visual changes. No eye pain. No eye discharge. ENT: No runny nose. No epistaxis. No sinus pain. No sore throat. No odynophagia. No congestion. RESPIRATORY: No cough, no congestion. No hemoptysis. No shortness of breath. CARDIOVASCULAR: No angina symptoms. No CHF symptoms. No atypical chest pain for CAD. No palpitations. No PND. No orthopnea. GASTROINTESTINAL: Appetite seems to have improved. No abdominal pain. No nausea or vomiting. No diarrhea or constipation. No hematemesis. No hematochezia. GENITOURINARY: No urgency. No frequency. No dysuria. No hematuria. No obstructive symptoms. No discharge. No pain. No significant abnormal bleeding. MUSCULOSKELETAL: No musculoskeletal pain; no joint swelling. NEUROLOGICAL: No headache. No neck pain. No syncope. No seizures. No dizziness. PSYCHIATRIC: Not anxious. No depression. No suicidal thoughts. No homicidal thoughts. SKIN: No rash. No lesions. No wounds. ENDOCRINE: No unexplained weight loss. No weight gain. HEMATOLOGIC/LYMPHATIC: No anemia. No purpura. No petechiae. No prolonged or excessive bleeding. No palpable lymph nodes. PHYSICAL EXAMINATION: VITAL SIGNS: Temperature 98.4, pulse 70, respiratory rate 16, BP 120/60, pulse ox 98%. HEENT: Head normocephalic, atraumatic. Eyes: Extraocular muscles are intact. Pupils are equal, round and reactive to light and accommodation. Ears: No lesions. Nose appeared normal. Throat: No exudate or erythema. NECK: Supple. No JVD, no carotid bruit. No lymphadenopathy or thyromegaly. LUNGS: Decreased breath sounds but clear to auscultation. Percussion note normal. Chest symmetrical. HEART: S1, S2, no S3. No murmurs. No cyanosis or clubbing. No ascites. Pulses: Dorsalis pedis and posterior tibial pulses +1 to +2 bilaterally. ABDOMEN: Soft. Nontender. Bowel sounds active. No CVA tenderness. No mass felt. EXTREMITIES: No edema. Full range of motion of all extremities, equal. NEUROLOGIC: No focal deficit. Cranial nerves II through XII are grossly intact. No headache. No double vision. SKIN: Not dry. Intact. Turgor - normal. LYMPHATIC: No palpable lymph nodes/no lymphedema. MUSCULOSKELETAL: Normal joints with no swelling. Muscle tone is normal. LABS: Hemoglobin 12.5, hematocrit 37, WBC 5,500, normal differential. Creatinine 0.6, BUN 16, potassium 3.7. ASSESSMENT: 1. Pneumonitis seems to be resolving with IV antibiotics, steroids, nebs. 2. The patient has mild nausea, will give some Zofran. 3. The patient's main problem is that she hasn't been able to rest at home because the has tracheostomy with multiple cancers. 4. She, herself, had Covid in September and from there she hasn't recovered much and now she has probably reaction to Covid vaccine which was given to her nearly 7 to 10 days ago. The patient is Covid negative. TIME SPENT: More than 30 minutes. Plan and coordination of the patient's care discussed in the presence of nurse. MU
--- NOTE | 2021-01-03 14:39 | ED.PDOC ---
General ED Provider: Dr. LEONID CASTILLO Chief Complaint: Shortness of Air Stated Complaint: Cough and shortness of breath, congestion. Has COVID Vaccine yesterday and became sick this morning Time Seen by Provider: 12/30/20 17:15 Mode of Arrival: Walk-In Information Source: Patient Exam Limitations: No limitations Primary Care Provider: PAUL KAUFMAN Nursing and Triage Documentation Reviewed and Agree: Yes Does patient meet sepsis criteria?: No System Inflammatory Response Syndrome: Not Applicable Sepsis Protocol: For patient's 13 years and over: Temp is 96.8 and below OR 101 and greater Pulse >90 BPM Resp >20/minute Acutely Altered Mental Status Are patient's symptoms suggestive of a new infection, such as: -Pneumonia -Skin, Soft Tissue -Endocarditis -UTI -Bone, Joint Infection -Implantable Device -Acute Abdominal Infection -Wound Infection -Meningitis -Blood Stream Catheter Infection -Unknown Respiratory Complaint Exam Respiratory Complaint/Exam Onset/Duration: 12 hr Symptoms Are: Still present Timing: Constant Initial Severity: Moderate Current Severity: Moderate Location: Chest Character: Reports Productive cough and Barking cough Aggravating: Reports Deep breaths and Recumbent position Alleviating: Reports Bronchodilators Associated Signs and Symptoms: Reports Dyspnea, Chills, Chest pain, Wheezing and Dizziness; Denies Rapid breathing, Fever, Pleuritic chest pain, Hemoptysis, Calf pain, Calf swelling, Edema, URI, Nasal congestion, Hoarseness, Sinus discomfort, Vomiting, Sore throat, Weight loss, Decreased oral intake, Increased thirst, Increased appetite and Increased urination Related History: Reports Similar episode Related Surgical History: Reports None Pulmonary Embolism Risk Factors: None Cardiac Risk Factors: Reports None Pseudomonas Risk Factors: Reports None Tuberculosis Risk Factors: Reports None Status Asthmaticus Risk Factors: Reports None Home Oxygen Use: No Recent Stress Test: No Recent Echo/LV Function: No Current Antibiotic Use: No Current Asthma Medication Use: Yes Respiratory Distress: Mild Inadequate Respiratory Effort: Yes Dysphagia Present: No Stridor Present: No JVD Present: No Accessory Muscle Use: No Retractions: Not Present Diminished Breath Sounds: Yes Sinus Tenderness: None Grunting Respirations: No Kussmaul Respirations: No Differential Diagnoses: Airway Obstruction, Asthma, Chest Wall Pain, Pneumonia and Influenza Review of Systems Review Of Systems Constitutional: Reports No symptoms Eyes: Reports No symptoms Ears, Nose, Mouth, Throat: Reports No symptoms Respiratory: Reports No symptoms, Cough, Short of air and Wheezing Cardiac: Reports No symptoms GI: Reports No symptoms : Reports No symptoms Musculoskeletal: Reports No symptoms Skin: Reports No symptoms Neurological: Reports No symptoms Endocrine: Reports No symptoms Hematologic/Lymphatic: Reports No symptoms All Other Systems: Reviewed and Negative [facility] Medical History Arthritis Borderline diabetic Depression High cholesterol Hypertension Family History Mother No problems noted. FATHER No problems noted. BROTHER No problems noted. BROTHER No problems noted. BROTHER No problems noted. BROTHER No problems noted. BROTHER No problems noted. Other Alzheimer's dementia Arthritis Heart attack Kidney disease Lung cancer Social History Smoking and tobacco status: Never smoker Passive smoking exposure: No Second hand smoke exposure: No Alcohol intake: never Substance use type: does not use Household members: spouse Housing: house Marital status: M Water heater temperature set < 120 degrees: Yes Working smoke detector in home: Yes Fire extinguisher in home: Yes Carbon monoxide detector in home: Yes Firearms in home: No Surgical History (Updated 01/02/21 @ 08:02 by HIRA CONNELL) carpel tunnel gallbladder surgery History of tubal ligation Previous back surgery Female Reproductive History Menstrual Hx Hysterectomy: No Hx Tubal Ligation: Yes Physical Exam Physical Exam Appearance: Reports Well-appearing, No pain distress and Well-nourished Ill-appearing: None Pain Distress: None Eyes: Reports SANJAY, EOMI and Conjunctiva clear ENT: Reports Ears normal, Nose normal and Oropharynx normal Respiratory: Reports Airway patent, Breath sounds clear, Breath sounds diminished, Respirations nonlabored, Crackles, Rhonchi (Rt lower chest) and Whe ezes Cardiovascular: Reports RRR, Pulses normal, No rub and No murmur GI/: Reports Soft, Nontender, No masses, Bowel sounds normal and No Organomegaly Musculoskeletal: Reports Normal strength, ROM intact, No edema and No calf tenderness Skin: Reports Warm, Dry and Normal color Neurological: Reports Sensation intact, Motor intact, Reflexes intact, Cranial n erves intact, Alert and Oriented Psychiatric: Reports Affect appropriate and Mood appropriate Interpretation Radiology Interpretation Exam Interpreted: CXR (Probable left basilar atelectasis versus less likely pneumonia) Physician Notification Case Discussed Physician Notified: Dr Kaufman Critical Care Note Critical Care Note Total Critical Care Time (mins): 30 Course Course Hematology/Chemistry: 01/03/21 04:50 01/03/21 04:50 Orders, Labs, Meds: Lab Review 12/30/20 12/30/20 12/30/20 16:32 16:32 16:32 WBC 7.95 RBC 4.43 Hgb 13.4 Hct 39.7 MCV 89.6 MCH 30.2 MCHC 33.8 RDW Coeff of [place] 13.3 Plt Count 192 Immature Gran % (Auto) 0.3 Neut % (Auto) 83.9 H Lymph % (Auto) 9.1 L [place] % (Auto) 5.8 Eos % (Auto) 0.4 Baso % (Auto) 0.5 Neut # (Auto) 6.7 Lymph # (Auto) 0.7 [place] # (Auto) 0.5 Eos # (Auto) 0.0 Baso # (Auto) 0.0 Immature Gran # (Auto) 0.0 Sodium 137.6 Potassium 3.99 Chloride 101.7 Carbon Dioxide 28.3 Anion Gap 11.59 BUN 15.7 Creatinine 0.73 Estimated GFR (MDRD) 79.00 BUN/Creatinine Ratio 21.50 Glucose 111.5 H Lactic Acid 1.00 Calcium 9.49 Total Bilirubin 0.90 AST 31.2 ALT 20.1 Alkaline Phosphatase 67.8 Total Creatine Kinase 31.6 Troponin I < 0.012 Total Protein 7.74 Albumin 4.40 Globulin 3.34 Albumin/Globulin Ratio 1.31 Procalcitonin Urine Color Urine Clarity Urine pH Ur Specific [place] Urine Protein Urine Glucose (UA) Urine Ketones Urine Blood Urine Nitrite Urine Bilirubin Urine Urobilinogen Ur Leukocyte Esterase Urine Microscopic RBC Urine Microscopic WBC Ur Squamous Epith Cells Urine Mucus Adenovirus (PCR) B. pertussis DNA (PCR) B.parapertussis DNA PCR C. pneumoniae DNA (PCR) Coronavirus OC43 (PCR) Coronavirus HKU1 (PCR) Coronavirus 229E (PCR) Coronavirus NL63 (PCR) Human Metapneumovir PCR Influenza Type A (PCR) Influenza B (RT-PCR) M. pneumoniae (PCR) Parainfluenza 1 (PCR) Parainfluenza 2 (PCR) Parainfluenza 3 (PCR) Parainfluenza 4 (PCR) RSV (PCR) Entero/Rhino (PCR) SARS-CoV-2 (PCR) 12/30/20 12/30/20 12/30/20 16:32 17:36 19:33 WBC RBC Hgb Hct MCV MCH MCHC RDW Coeff of Ariela Plt Count Immature Gran % (Auto) Neut % (Auto) Lymph % (Auto) [place] % (Auto) Eos % (Auto) Baso % (Auto) Neut # (Auto) Lymph # (Auto) [place] # (Auto) Eos # (Auto) Baso # (Auto) Immature Gran # (Auto) Sodium Potassium Chloride Carbon Dioxide Anion Gap BUN Creatinine Estimated GFR (MDRD) BUN/Creatinine Ratio Glucose Lactic Acid Calcium Total Bilirubin AST ALT Alkaline Phosphatase Total Creatine Kinase Troponin I Total Protein Albumin Globulin Albumin/Globulin Ratio Procalcitonin < 0.05 Urine Color Dark Urine Clarity Clear Urine pH 8.0 Ur Specific [place] 1.020 Urine Protein 1+ H Urine Glucose (UA) Negative Urine Ketones Negative Urine Blood Negative Urine Nitrite Negative Urine Bilirubin Negative Urine Urobilinogen 0.2 Ur Leukocyte Esterase Negative Urine Microscopic RBC 2-5 Urine Microscopic WBC 2-5 Ur Squamous Epith Cells 2-5 Urine Mucus 2+ Adenovirus (PCR) Not detected B. pertussis DNA (PCR) Not detected B.parapertussis DNA PCR Not detected C. pneumoniae DNA (PCR) Not detected Coronavirus OC43 (PCR) Not detected Coronavirus HKU1 (PCR) Not detected Coronavirus 229E (PCR) Not detected Coronavirus NL63 (PCR) Not detected Human Metapneumovir PCR Not detected Influenza Type A (PCR) Not detected Influenza B (RT-PCR) Not detected M. pneumoniae (PCR) Not detected Parainfluenza 1 (PCR) Not detected Parainfluenza 2 (PCR) Not detected Parainfluenza 3 (PCR) Not detected Parainfluenza 4 (PCR) Not detected RSV (PCR) Not detected Entero/Rhino (PCR) Not detected SARS-CoV-2 (PCR) Not detected Orders Category Date Time Status ADMIT PATIENT INPATIENT .TO MEDSURG (MONITORED BED) ADMISSION 12/30/20 19:01 Completed OXYGEN Routine CARDIO 12/30/20 19:01 Completed ACTIVITY .BR with BRP CARE 12/30/20 19:02 Completed BLOOD GLUCOSE MONITORING 0630,1100,1700,2100 CARE 12/30/20 19:02 Completed INTAKE & OUTPUT Q8HR CARE 12/30/20 19:01 Completed TELEMETRY MONITORING TELE CARE 12/30/20 19:01 Completed VITAL SIGNS Q8HR CARE 12/30/20 19:02 Completed REGULAR DIET DIETARY 12/30/20 Dinner Completed BLOOD CULTURE (ED ONLY) Stat LAB 12/30/20 16:32 Results CBC W/ AUTO DIFF DAILY@0600 LAB 12/31/20 04:45 Completed CBC W/ AUTO DIFF DAILY@0600 LAB 01/01/21 04:50 Completed CBC W/ AUTO DIFF Stat LAB 12/30/20 16:32 Completed CMP [COMPREHENSIVE METABOLIC PANEL] Stat LAB 12/30/20 16:32 Completed COMPREHENSIVE METABOLIC PANEL DAILY@0600 LAB 12/31/20 04:45 Completed COMPREHENSIVE METABOLIC PANEL DAILY@0600 LAB 01/01/21 04:50 Completed CPK [CREATINE KINASE] Stat LAB 12/30/20 16:32 Completed LACTIC ACID Stat LAB 12/30/20 16:32 Completed PROCALCITONIN Stat LAB 12/30/20 16:32 Completed RAPID STREP SCREEN [MOLECULAR GROUP A STREP] Stat LAB 12/30/20 17:36 Completed RESPIRATORY PANEL 2.1 (PCR) Stat LAB 12/30/20 19:33 Completed TROPONIN I Q8H LAB 12/31/20 01:30 Completed TROPONIN I Q8H LAB 12/31/20 09:35 Completed TROPONIN I Stat LAB 12/30/20 16:32 Completed UA [URINALYSIS C & S IF INDICATED] Stat LAB 12/30/20 17:36 Completed Acetaminophen [Tylenol] MEDS 12/30/20 16:27 Discontinued 650 mg PO ONCE STA Acetaminophen [Tylenol] MEDS 12/30/20 19:01 Discontinued 650 mg PO Q4H PRN Azithromycin [Zithromax] MEDS 12/30/20 19:30 Discontinued 500 mg PO DAILY Ceftriaxone/D5w 1 gm Premix [Rocephin 1 gm/50 ml D5w] MEDS 12/30/20 19:30 Discontinued 1 gm in 50 ml IV DAILY Enoxaparin Sodium [Lovenox] MEDS 12/30/20 19:30 Discontinued 40 mg SUBCUT DAILY Methylprednisolone Sod Succ/Pf [Solu-Medrol 125 mg] MEDS 12/30/20 19:30 Discontinued 125 mg IVP Q8HR Ondansetron HCl/Pf [Zofran 4 mg/2 ml] MEDS 12/30/20 16:16 Discontinued 4 mg IVP ONCE STA Sodium Chloride 0.9% [Sodium Chloride] 1,000 ml MEDS 12/30/20 16:17 Discontinued IV BOLUS RESUSCITATION STATUS Routine OTHERS 12/30/20 19:01 Completed CHEST, 1V AP ONLY Stat RADS 12/30/20 16:25 Completed PT CONSULT Routine THERAPIES 12/30/20 15:50 Completed Medications Discontinued Medications Generic Name Dose Route Start Last Admin Trade Name Fredisha PRN Reason Stop Dose Admin Acetaminophen 650 mg 12/30/20 16:27 12/30/20 16:30 Acetaminophen 325 Mg Tablet PO 12/30/20 16:28 650 mg ONCE STA Administration Acetaminophen 650 mg 12/30/20 19:01 Acetaminophen 325 Mg Tablet PO Q4H PRN Fever >101 Amlodipine Besylate 5 mg 12/30/20 22:00 01/03/21 08:43 Amlodipine Besylate 5 Mg Tablet PO 5 mg BID [facility] Administration Aspirin 81 mg 12/31/20 09:00 12/31/20 08:30 Aspirin 81 Mg Tab.Chew PO 81 mg DAILY [facility] Administration Aspirin 81 mg 01/01/21 08:30 01/03/21 08:43 Aspirin 81 Mg Tab.Chew PO 81 mg DAILYWM [facility] Administration Azithromycin 500 mg 12/30/20 19:30 12/30/20 22:04 Azithromycin 250 Mg Tablet PO 01/02/21 19:29 500 mg DAILY [facility] Administration Azithromycin 500 mg 12/31/20 21:00 01/01/21 20:20 Azithromycin 250 Mg Tablet PO 01/02/21 19:29 500 mg BEDTIME [facility] Administration Budesonide/Formoterol Fumarate 2 puff 01/02/21 21:00 01/03/21 08:58 Budesonide/Formoterol Fumarate 160/4.5 Mcg Inhaler IH 2 puff BID [facility] Administration Ceftriaxone Sodium 1 gm 01/01/21 21:00 01/02/21 20:51 Ceftriaxone 1 Gm Vial 1 Gm Vial IM 01/02/21 22:00 1 gm BEDTIME [facility] Administration Cholecalciferol 5,000 unit 12/31/20 09:00 01/03/21 08:43 Cholecalciferol (Vitamin D3) 1,000 Unit (25 Mcg) Tablet PO 5,000 unit DAILY [facility] Administration Colestipol HCl 1 gm 12/30/20 22:00 12/31/20 21:16 Colestipol Hcl 1 Gm Tablet PO 1 gm BID [facility] Administration Colestipol HCl 1 gm 01/01/21 10:00 01/03/21 08:59 Colestipol Hcl 1 Gm Tablet PO 1 gm 1000,2200 [facility] Administration Enoxaparin Sodium 40 mg 12/30/20 19:30 01/02/21 09:31 Enoxaparin Sodium 40 Mg/0.4 Ml Syr SUBCUT 40 mg DAILY [facility] Administration Escitalopram Oxalate 20 mg 12/31/20 09:00 01/03/21 08:43 Escitalopram Oxalate 10 Mg Tablet PO 20 mg DAILY [facility] Administration Fluticasone Propionate 2 spray 12/31/20 09:00 01/03/21 08:58 Fluticasone Propionate 16 Gm Nasal [place] SHELL 2 spray DAILY [facility] Administration Sodium Chloride 1,000 mls @ 1,000 mls/hr 12/30/20 16:17 12/30/20 16:31 Sodium Chloride IV 12/30/20 17:16 1,000 mls/hr BOLUS STA Administration CEFTRIAXONE/D5W 1 GM PREMIX 1 gm in 50 mls @ 75 mls/hr 12/30/20 19:30 12/30/20 22:06 Rocephin 1 Gm/50 Ml D5w IV 01/02/21 19:29 75 mls/hr DAILY [facility] Administration CEFTRIAXONE/D5W 1 GM PREMIX 1 gm in 50 mls @ 75 mls/hr 12/31/20 21:00 12/31/20 21:16 Rocephin 1 Gm/50 Ml D5w IV 01/02/21 19:29 75 mls/hr BEDTIME [facility] Administration Insulin Human Regular 0 unit 12/31/20 12:32 01/02/21 20:55 Insulin Regular, Human 100 Unit/Ml (3ml) Vial SUBCUT 3 unit PRN PRN Administration Hyperglycemia Protocol Lidocaine HCl 2.1 ml 01/01/21 21:00 01/02/21 20:53 Lidocaine Hcl/Pf 1% 5 Ml Vial IM 01/02/21 22:00 2.1 ml BEDTIME [facility] Administration Loratadine 10 mg 12/31/20 09:00 01/03/21 08:43 Loratadine 10 Mg Tablet PO 10 mg DAILY [facility] Administration Losartan Potassium 100 mg 12/31/20 09:00 01/03/21 08:43 Losartan Potassium 100 Mg Tablet PO 100 mg DAILY [facility] Administration Methylprednisolone Sodium Succinate 125 mg 12/30/20 19:30 01/01/21 05:20 Methylprednisolone Sod Succ/Pf 125 Mg/2 Ml Vial IVP 125 mg Q8HR [facility] Administration Ondansetron HCl 4 mg 12/30/20 16:16 12/30/20 16:30 Ondansetron Hcl/Pf 4 Mg/2 Ml Sdv IVP 12/30/20 16:17 4 mg ONCE STA Administration Pantoprazole Sodium 40 mg 12/31/20 09:00 12/31/20 08:31 Pantoprazole Sodium 40 Mg Tablet. PO 40 mg DAILY [facility] Administration Pantoprazole Sodium 40 mg 01/01/21 07:00 01/03/21 05:46 Pantoprazole Sodium 40 Mg Tablet. PO 40 mg QDAC [facility] Administration Prednisone 10 mg 01/01/21 17:00 01/03/21 08:43 Prednisone 10 Mg Tablet PO 10 mg BIDWM [facility] Administration Simvastatin 40 mg 12/31/20 17:00 01/02/21 17:52 Simvastatin 40 Mg Tablet PO 40 mg DAILY@1700 [facility] Administration Sodium Chloride 1 syr 12/31/20 05:00 01/01/21 12:09 0.9% Sodium Chloride 10 Ml Disp.Syrin IVF 1 syr Q8HR [facility] Administration Sodium Chloride 1 syr 01/01/21 21:00 01/03/21 12:29 0.9% Sodium Chloride 10 Ml Disp.Syrin IVF Not Given Q8HR [facility] Vital Signs: Temp Pulse Resp BP Pulse Ox 12/30/20 15:56 102 F H 80 18 89/68 L 98 Discharge Plan Discharge Patient Disposition: ADMITTED INPATIENT Discharge Problem: Pneumonia ED Provider: LEONID CASTILLO Condition: Fair Physician Progress Note: []
--- NOTE | 2021-01-05 14:42 | PN ---
DATE OF SERVICE: 01/03/21 SUBJECTIVE: The patient was seen and examined with the nurse practitioner. The pneumonia has clinically resolved. The patient is up and about, afebrile. REVIEW OF SYSTEMS: CONSTITUTIONAL: No night sweats. No fatigue, malaise, lethargy. No fever or chills. HEENT: Eyes: No visual changes. No eye pain. No eye discharge. ENT: No runny nose. No epistaxis. No sinus pain. No sore throat. No odynophagia. No congestion. RESPIRATORY: No cough, no congestion. No hemoptysis. No shortness of breath. CARDIOVASCULAR: No angina symptoms. No CHF symptoms. No atypical chest pain for CAD. No palpitations. No PND. No orthopnea. GASTROINTESTINAL: No abdominal pain. No nausea or vomiting. No diarrhea or constipation. No hematemesis. No hematochezia. GENITOURINARY: No urgency. No frequency. No dysuria. No hematuria. No obstructive symptoms. No discharge. No pain. No significant abnormal bleeding. MUSCULOSKELETAL: No musculoskeletal pain; no joint swelling. NEUROLOGICAL: No headache. No neck pain. No syncope. No seizures. No dizziness. PSYCHIATRIC: Not anxious. No depression. No suicidal thoughts. No homicidal thoughts. SKIN: No rash. No lesions. No wounds. ENDOCRINE: No unexplained weight loss. No weight gain. HEMATOLOGIC/LYMPHATIC: No anemia. No purpura. No petechiae. No prolonged or excessive bleeding. No palpable lymph nodes. PHYSICAL EXAMINATION: HEENT: Head normocephalic, atraumatic. Eyes: Extraocular muscles are intact. Pupils are equal, round and reactive to light and accommodation. Ears: No lesions. Nose appeared normal. Throat: No exudate or erythema. NECK: Supple. No JVD, no carotid bruit. No lymphadenopathy or thyromegaly. LUNGS: Decreased breath sounds but clear to auscultation. Percussion note normal. Chest symmetrical. HEART: S1, S2, no S3. No murmurs. No cyanosis or clubbing. No ascites. Pulses: Dorsalis pedis and posterior tibial pulses +1 to +2 bilaterally. ABDOMEN: Soft. Nontender. Bowel sounds active. No CVA tenderness. No mass felt. EXTREMITIES: No edema. Full range of motion of all extremities, equal. NEUROLOGIC: No focal deficit. Cranial nerves II through XII are grossly intact. No headache. No double vision. SKIN: Not dry. Intact. Turgor - normal. LYMPHATIC: No palpable lymph nodes/no lymphedema. MUSCULOSKELETAL: Normal joints with no swelling. Muscle tone is normal. PLAN: 1. Antibiotics, steroids and inhalers. CONDITION: Stable. TIME SPENT: More than 30 minutes. Plan and coordination of the patient's care discussed in the presence of nurse. MU
--- NOTE | 2021-01-05 14:53 | DS ---
DATE OF SERVICE: 01/03/21 FINAL DIAGNOSIS: 1. PNEUMONIA, LEFT BASILAR 2. SHORTNESS OF AIR 3. FEVER, POST COVID VACCINE 4. NAUSEA, POST COVID VACCINE 5. HYPERTENSION 6. DYSLIPIDEMIA 7. GERD 8. COPD, MILD PER PFT 03/2015 9. DEPRESSION 10. ANXIETY 11. CARPEL TUNNEL RELEASE, RIGHT 12. CHOLECYSTECTOMY 13. LUMBAR SURGERY, DR. BOONE 14. ECHOCARDIOGRAM 11/21/2020, LVEF 64%, BORDERLINE LVH, NORMAL LV CONTRACTILITY, NORMAL VALVES 15. STRESS TEST: 12/07/20, NO EVIDENCE OF ISCHEMIA LAST VITALS Temp Pulse Resp BP Pulse Ox 97.9 F 53 L 16 137/74 98 01/03/21 05:41 01/03/21 05:41 01/03/21 05:41 01/03/21 05:41 01/03/21 10:00 DISCHARGE INSTRUCTIONS: 1. DISCHARGE HOME 2. AN APPOINTMENT IS SCHEDULED WITH DR. KAUFMAN/SEYMOUR MARS APRN ON January AT 2:15 PM MEDICATIONS AT DISCHARGE: Amlodipine Besylate (Amlodipine Besylate 5 Mg Tablet) 5 mg PO BID [facility] Last Admin: 01/03/21 08:43 Dose: 5 mg Documented by: Aspirin (Aspirin 81 Mg Tab.Chew) 81 mg PO DAILYWM [facility] Last Admin: 01/03/21 08:43 Dose: 81 mg Documented by: Budesonide/Formoterol Fumarate (Budesonide/Formoterol Fumarate 160/4.5 Mcg Inhaler) 2 puff IH BID [facility] Last Admin: 01/03/21 08:58 Dose: 2 puff Documented by: Cholecalciferol (Cholecalciferol (Vitamin D3) 1,000 Unit (25 Mcg) Tablet) 5,000 unit PO DAILY [facility] Last Admin: 01/03/21 08:43 Dose: 5,000 unit Documented by: Colestipol HCl (Colestipol Hcl 1 Gm Tablet) 1 gm PO 1000,2200 [facility] Last Admin: 01/03/21 08:59 Dose: 1 gm Documented by: Escitalopram Oxalate (Escitalopram Oxalate 10 Mg Tablet) 20 mg PO DAILY [facility] Last Admin: 01/03/21 08:43 Dose: 20 mg Documented by: Fluticasone Propionate (Fluticasone Propionate 16 Gm Nasal [place]) 2 spray SHELL DAILY [facility] Last Admin: 01/03/21 08:58 Dose: 2 spray Documented by: Zyrtec 10 Mg Tablet 10 mg PO DAILY [facility] Last Admin: 01/03/21 08:43 Dose: 10 mg Documented by: Losartan Potassium (Losartan Potassium 100 Mg Tablet) 100 mg PO DAILY [facility] Last Admin: 01/03/21 08:43 Dose: 100 mg Documented by: Pantoprazole Sodium (Pantoprazole Sodium 40 Mg Tablet.) 40 mg PO QDAC [facility] Last Admin: 01/03/21 05:46 Dose: 40 mg Documented by: Simvastatin (Simvastatin 40 Mg Tablet) 40 mg PO DAILY@1700 [facility] Last Admin: 01/02/21 17:52 Dose: 40 mg Documented by: NEW PRESCRIPTIONS: NONE COMPLETE HOSPITAL SUPPLY OF SYMBICORT 2 PUFFS BID DISCONTINUED MEDICATIONS: NONE DIET INSTRUCTIONS: REGULAR TOLERATED ACTIVITY: RESUME TOLERATED ALLOW FOR REST PERIODS DURING THE DAY SMOKING: NOT APPLICABLE DISEASE SPECIFIC EDUCATION: IMPORTANCE OF DEEP BREATHING APPOINTMENT IMPORTANCE OF GOOD NUTRITION AND HYDRATION HOSPITAL COURSE: The patient is a 70-year-old female who was hospitalized through the emergency room because she was running fever for two days. Covid shot a few days prior to hospitalization. She has a history of Covid two months ago. The patient's condition deteriorated and she started vomiting. The patient was hospitalized with possibility of early pneumonia, was treated with IV antibiotics and steroids. The patient's condition has improved. Her hydration status has improved. There is no nausea or vomiting. No gastritis. No fever or chills. She was discharged to continue the same medications. No other antibiotics were given further as she had finished the course of antibiotics with practically no evidence of pneumonia. Condition at time of discharge stable. The patient's febrile reaction could have been from Covid vaccine with chest x-ray showing some atelectasis. The patient's problem is her is sick with multiple cancer, tracheostomy, NG tube, weighs more than 300 lbs and she has to help him do all activity of daily living. The patient is to be followed as an outpatient. TIME SPENT: More than 60 minutes. [facility]
--- NOTE | 2021-01-06 11:32 | PN ---
BILLING 12/30/20 ADMISSION DAY LEVEL 5 12/31/20 INTERMEDIATE 01/01/21 INTERMEDIATE 01/02/21 INTERMEDIATE 01/03/21 D IN DISCHARGE MTDD
--- NOTE | 2021-01-06 12:44 | HP ---
DATE OF SERVICE: 12/30/20 REASON FOR HOSPITALIZATION/HISTORY OF PRESENT ILLNESS: This 70-year-old white female who presents to the emergency room complaining of shortness of breath, cough, congestion. She has had nausea, fever. She had her Covid vaccine yesterday and became sick this morning. PAST MEDICAL HISTORY: Hypertension Dyslipidemia GERD Mild COPD Depression/anxiety PAST SURGICAL HISTORY: Right carpal tunnel surgery Cholecystectomy Lumbar surgery She last had an echo on 12/04. REVIEW OF SYSTEMS: CONSTITUTIONAL: Positive for fever, fatigue. No night sweats. No malaise, lethargy. No fever or chills. HEENT: Eyes: No visual changes. No eye pain. No eye discharge. ENT: No runny nose. No epistaxis. No sinus pain. No sore throat. No odynophagia. No ear pain. No congestion. RESPIRATORY: Positive for cough. No hemoptysis. No shortness of breath. CARDIOVASCULAR: No angina symptoms. No CHF symptoms. No atypical chest pain for CAD. No palpitations. No PND. No orthopnea. GASTROINTESTINAL: Positive for nausea. No abdominal pain. No vomiting. No diarrhea or constipation. No hematemesis. No hematochezia. GENITOURINARY: No urgency. No frequency. No dysuria. No hematuria. No obstructive symptoms. No discharge. No pain. No significant abnormal bleeding. MUSCULOSKELETAL: No musculoskeletal pain. No joint swelling. No arthritis. NEUROLOGICAL: No headache. No neck pain. No syncope. No seizures. No dizziness. PSYCHIATRIC: Not anxious. No depression. No suicidal thoughts. No homicidal thoughts. SKIN: No rash. No lesions. No wounds. ENDOCRINE: No unexplained weight loss. No weight gain. HEMATOLOGIC/LYMPHATIC: No anemia. No purpura. No petechiae. No prolonged or excessive bleeding. No palpable lymph nodes. PERSONAL/FAMILY/SOCIAL HISTORY: She is . No alcohol or ilicit drug use. Nonsmoker. MEDICATIONS: Zyrtec 10 mg p.o. daily Simvastatin 40 mg p.o. daily Fluticasone two spray NS daily Escitalopram Oxalate 20 mg p.o. daily Amlodipine 5 mg p.o. b.i.d. Losartan 100 mg p.o. daily Epipen 0.3 mg IJ p.r.n. Cholecalciferol 5,000 unit p.o. daily Aspirin 81 mg p.o. daily Pantoprazole 40 mg p.o. daily Colestipol 1 gm p.o. b.i.d. tab ALLERGIES: BEE VENOM PROTEIN (HONEY BEE), PENICILLINS, SULFA (SULFONAMIDE ANTIBIOTICS) PHYSICAL EXAMINATION: VITAL SIGNS: Temperature 102, heart rate 80, respirations 18, BP 89/68, pulse ox 98%. HEENT: Head normocephalic, atraumatic. Eyes: Extraocular muscles are intact. Pupils are equal, round and reactive to light and accommodation. Ears: No lesions. Nose appeared normal. Throat: No exudate or erythema. NECK: Supple. No JVD, no carotid bruit. No lymphadenopathy or thyromegaly. LUNGS: Diminished breath sounds bilaterally. Clear to auscultation. Percussion note normal. Chest symmetrical. HEART: S1, S2, no S3. No murmur. No cyanosis or clubbing. No ascites. Pulses: Dorsalis pedis and posterior tibial pulses +1 to +2 bilaterally. ABDOMEN: Soft. Nontender. Bowel sounds active. No CVA tenderness. No mass felt. EXTREMITIES: No edema. Full range of motion of all extremities, equal. NEUROLOGIC: No focal deficit. Cranial nerves II through XII are grossly intact. No headache, no double vision or headache. SKIN: Not dry. Intact. Turgor - normal. LYMPHATIC: No palpable lymph nodes/no lymphedema. MUSCULOSKELETAL: Normal joints with no swelling. Muscle tone is normal. White count 4.9, hemoglobin 11.7, hematocrit 34.5, platelets 173. Sodium 137, potassium 3.6, BUN 22, creatinine 0.6. Glucose 107. Chest x-ray shows left basilar atelectasis vs pneumonia. Urine showed 1+ protein, 2+ mucus. Respiratory panel by PCR is negative. ASSESSMENT: 1. LEFT LOWER PNEUMONIA 2. HYPOTENSION 3. FEVER PLAN: 1. We will admit. 2. Routine telemetry orders. 3. CBC, CMP daily. 4. Start Rocephin 1 gm IV daily. 5. NS IV at 75 cc/hr. 6. Urine for culture and sensitivity. 7. Regular diet. 8. Oxygen 1-2L as needed. 9. ABGs on room air. 10. We will follow closely. TIME SPENT: More than 70 minutes. MTDD
--- NOTE | 2021-01-10 11:27 | DS ---
DATE OF SERVICE: 01/03/21 FINAL DIAGNOSIS: 1. PNEUMONIA, LEFT BASILAR 2. SHORTNESS OF AIR 3. FEVER, POST COVID VACCINE 4. NAUSEA, POST COVID VACCINE 5. HYPERTENSION 6. DYSLIPIDEMIA 7. GERD 8. COPD, MILD PER PFT 03/2015 9. DEPRESSION 10. ANXIETY 11. CARPEL TUNNEL RELEASE, RIGHT 12. CHOLECYSTECTOMY 13. LUMBAR SURGERY, DR. BOONE 14. ECHOCARDIOGRAM 11/21/2020; LVEF 64%, BORDERLINE LVH, NORMAL LV CONTRACTILITY, NORMAL VALVES 15. STRESS TEST: 12/07/20 NO EVIDENCE OF ISCHEMIA LAST VITALS Temp Pulse Resp BP Pulse Ox 97.9 F 53 L 16 137/74 98 01/03/21 05:41 01/03/21 05:41 01/03/21 05:41 01/03/21 05:41 01/03/21 10:00 DISCHARGE INSTRUCTIONS: 1. DISCHARGE HOME 2. AN APPOINTMENT IS SCHEDULED WITH DR. KAUFMAN/SEYMOUR MARS APRN ON January AT 2:15 PM MEDICATIONS AT DISCHARGE: Amlodipine Besylate (Amlodipine Besylate 5 Mg Tablet) 5 mg PO BID [facility] Last Admin: 01/03/21 08:43 Dose: 5 mg Documented by: Aspirin (Aspirin 81 Mg Tab.Chew) 81 mg PO DAILYWM [facility] Last Admin: 01/03/21 08:43 Dose: 81 mg Documented by: Budesonide/Formoterol Fumarate (Budesonide/Formoterol Fumarate 160/4.5 Mcg Inhaler) 2 puff IH BID [facility] Last Admin: 01/03/21 08:58 Dose: 2 puff Documented by: Cholecalciferol (Cholecalciferol (Vitamin D3) 1,000 Unit (25 Mcg) Tablet) 5,000 unit PO DAILY [facility] Last Admin: 01/03/21 08:43 Dose: 5,000 unit Documented by: Colestipol HCl (Colestipol Hcl 1 Gm Tablet) 1 gm PO 1000,2200 [facility] Last Admin: 01/03/21 08:59 Dose: 1 gm Documented by: Escitalopram Oxalate (Escitalopram Oxalate 10 Mg Tablet) 20 mg PO DAILY [facility] Last Admin: 01/03/21 08:43 Dose: 20 mg Documented by: Fluticasone Propionate (Fluticasone Propionate 16 Gm Nasal [place]) 2 spray SHELL DAILY [facility] Last Admin: 01/03/21 08:58 Dose: 2 spray Documented by: Zyrtec 10 Mg Tablet 10 mg PO DAILY [facility] Last Admin: 01/03/21 08:43 Dose: 10 mg Documented by: Losartan Potassium (Losartan Potassium 100 Mg Tablet) 100 mg PO DAILY [facility] Last Admin: 01/03/21 08:43 Dose: 100 mg Documented by: Pantoprazole Sodium (Pantoprazole Sodium 40 Mg Tablet.) 40 mg PO QDAC [facility] Last Admin: 01/03/21 05:46 Dose: 40 mg Documented by: Simvastatin (Simvastatin 40 Mg Tablet) 40 mg PO DAILY@1700 [facility] Last Admin: 01/02/21 17:52 Dose: 40 mg Documented by: NEW PRESCRIPTIONS: NONE COMPLETE HOSPITAL SUPPLY OF SYMBICORT 2 PUFFS BID DISCONTINUED MEDICATIONS: NONE DIET INSTRUCTIONS: REGULAR TOLERATED ACTIVITY: RESUME TOLERATED ALLOW FOR REST PERIODS DURING THE DAY SMOKING: NOT APPLICABLE DISEASE SPECIFIC EDUCATION: IMPORTANCE OF DEEP BREATHING APPOINTMENT IMPORTANCE OF GOOD NUTRITION AND HYDRATION HOSPITAL COURSE: This 70-year-old white female who presented to the emergency room after having her second Covid vaccine. She was short of breath, had fever of 102, nauseated. Chest x-ray showed that she had left basilar pneumonia. She was hypotensive. Blood pressure 86/59. She was admitted, placed on IV fluids, started on Rocephin and Zithromax. Oxygen at 1 to 2L. ABGs were normal. Urine culture was normal. She, over the course of the next several days, steadily improved. Zofran controlled the nausea. She will be discharged home today in stable condition to followup with us in the office next week. TIME SPENT: More than 60 minutes. MTDD
== END 2021-01-03 14:35 | disposition home or self-care (01) ==
LOC: ED 15:56 → INTOOBSV 20:48 → MEDSURG A 20:48
PROVIDERS: ADMIT Internal Medicine; ATTEND Internal Medicine
DX: R11.2 Nausea with vomiting, unspecified; I10 Essential (primary) hypertension; K29.70 Gastritis, unspecified, without bleeding; J44.9 Chronic obstructive pulmonary disease, unspecified; R50.9 Fever, unspecified; K21.9 Gastro-esophageal reflux disease without esophagitis; E78.5 Hyperlipidemia, unspecified; F41.9 Anxiety disorder, unspecified